=== PATIENT | male | born 1960 | race Caucasian/White ===

== ENCOUNTER 2019-11-28 11:21 | Observation (INO) | payer MEDICAID, OTHER ==
[~2019-11-28] VITALS: Ht 167.6 cm; Wt 110.4 kg
[~2019-11-28 11:21] MED LIST: CYCL-259 PO
[2019-11-28] MEDS ORDERED: SODIUM CHLORIDE FLUSH 10ML SYR IVF ONE (12:00)
[2019-11-28] MEDS ORDERED: MORPHINE SULFATE 4 MG/ML, 1ML IVPush PRN (12:00)
[2019-11-28] MEDS ORDERED: NITROGLYCERIN SINGLE TAB 0.4 MG SL PRN (12:00)
[2019-11-28] MEDS ORDERED: ASPIRIN 81 MG TABLET CHEW PO ONE (12:00)
--- NOTE | 2019-11-28 12:15 | NUR ---
Assumed care of patient. C/O left sided CP and bilateral upper back/shoulder pain. C/O intermittent bilateral lower ABD pain and nausea. HX DM and HTN. VSS. at bedside. Will continue to monitor.
[2019-11-28 12:22] LABS: BASOPHILS # (AUTO) 0.06 x10^3/uL (0-0.1); BASOPHILS % (AUTO) 1 % (0-1); EOSINOPHILS # (AUTO) 0.05 x10^3/uL (0-0.4); EOSINOPHILS % (AUTO) 1 % (1-7); LYMPHOCYTES # (AUTO) 1.32 x10^3/uL (1-3.4); LYMPHOCYTES % (AUTO) 19 % (22-44); MD NO; MEAN CORPUSCULAR HEMOGLOBIN 30.4 pg (27.5-34.5); MEAN CORPUSCULAR HGB CONC 33.4 g/dL (33.2-36.2); MEAN PLATELET VOLUME 9.9 fL (7.4-10.4); MONOCYTES # (AUTO) 0.48 x10^3/uL (0.2-0.8); MONOCYTES % (AUTO) 7 % (2-9); NEUTROPHILS # (AUTO) 4.93 x10^3/uL (1.8-6.8); NEUTROPHILS % (AUTO) 72 % (42-75); PLATELET COUNT 198 x10^3/uL (130-400); RED BLOOD COUNT 5.01 x10^6/uL (4.38-5.82); RED CELL DISTRIBUTION WIDTH 13.4 % (9.4-14.8)
[2019-11-28] MEDS ORDERED: NITROGLYCERIN SINGLE TAB 0.4 MG SL ONE (12:25)
[2019-11-28] MEDS ORDERED: ASPIRIN 81 MG TABLET CHEW ONE (12:25)
--- NOTE | 2019-11-28 12:28 | NUR ---
CP = 6-7. VSS. Nitro admin. No other needs.
[2019-11-28 12:30] LABS: ALBUMIN 3.9 g/dL (3.4-5.0); ANION GAP 7 mmol/L (5-15); CALCIUM 8.8 mg/dL (8.5-10.1); CHLORIDE 104 mmol/L (98-107)
[2019-11-28 12:35] LABS: ALANINE AMINOTRANSFERASE 47 U/L (12-78); ALKALINE PHOSPHATASE 101 U/L (45-117); BILIRUBIN,TOTAL 0.4 mg/dL (0.2-1.0); CREATININE 0.85 mg/dL (0.7-1.3); TOTAL PROTEIN 7.9 g/dL (6.4-8.2); TROPONIN I < 0.015 ng/mL (0.000-0.045)
--- NOTE | 2019-11-28 12:36 | NUR ---
CP = 4. VSS. Refusing second dose of nitro.
[2019-11-28] MEDS ORDERED: METF500T17 PO (13:05)
[2019-11-28] MEDS ORDERED: METO-93 PO (13:07)
[2019-11-28] MEDS ORDERED: LISI-167 PO (13:07)
[2019-11-28] MEDS ORDERED: AMLO10TA8 PO (13:07)
--- NOTE | 2019-11-28 13:36 | NUR ---
Pt traveled to [place] with tech
[2019-11-28] MEDS ORDERED: OMNIPAQUE 350 MG/ML, 100ML BOTTLE ONE (14:05)
--- NOTE | 2019-11-28 14:21 | NUR ---
CP = 3. VSS. No needs. Plan is for admit.
[2019-11-28] MEDS ORDERED: NITROGLYCERIN 0.4 MG BOTTLE (25 TABS) SL PRN (14:30)
[2019-11-28] MEDS ORDERED: DOCUSATE 100 MG CAPSULE PO PRN (14:30)
[2019-11-28] MEDS ORDERED: morphine SULFATE 10 MG/ML, 1ML IVPush PRN (14:30)
[2019-11-28] MEDS ORDERED: ONDANSETRON ODT 4 MG PO PRN (14:30)
[2019-11-28] MEDS ORDERED: ACETAMINOPHEN 325 MG TABLET PO PRN (14:30)
[2019-11-28] MEDS ORDERED: POLYETHYLENE GLYCOL 17 GM PACKET PO PRN (14:30)
[2019-11-28] MEDS ORDERED: BISACODYL 10 MG SUPP PR PRN (14:30)
[2019-11-28] MEDS ORDERED: ONDANSETRON 2MG/ML, 2ML IVPush PRN (14:30)
[2019-11-28] MEDS ORDERED: PROMETHAZINE 25 MG/ML, 1ML IM PRN (14:30)
[2019-11-28] MEDS ORDERED: hydrALAzine 20 MG/ML, 1ML IVPush PRN (14:30)
[2019-11-28 14:37] LABS: FREE T4 (FREE THYROXINE) 1.15 ng/dL (0.76-1.46)
--- NOTE | 2019-11-28 15:02 | NUR ---
Report given to full charge bookkeeper on tele floor
[2019-11-28 15:16] VITALS: BP 146/89
[2019-11-28] MEDS: HEPARIN 5,000 UNITS/ML, 1ML SQ SCH ×2 (15:46→21:45)
[2019-11-28] MEDS: PANTOPRAZOLE 40 MG IV IVPush SCH (15:47)
[2019-11-28] MEDS: INSULIN LISPRO 100 UNITS/ML, PEN SQ-INSULIN SCH ×2 (16:00→21:46)
[2019-11-28 17:13] LABS: TROPONIN I < 0.015 ng/mL (0.000-0.045)
[2019-11-28 19:40] VITALS: BP 123/75
[2019-11-28 20:40] LABS: TROPONIN I < 0.015 ng/mL (0.000-0.045)
[2019-11-28] MEDS: OXYcodone IR 5MG TABLET PO PRN (21:45)
[2019-11-28] MEDS: METOPROLOL SUCCINATE 50 MG TAB.ER.24H PO SCH (21:45)
[2019-11-29 01:25] VITALS: BP 122/83
[2019-11-29] MEDS: OXYcodone IR 5MG TABLET PO PRN (03:11)
[2019-11-29 04:30] LABS: BASOPHILS # (AUTO) 0.03 x10^3/uL (0-0.1); BASOPHILS % (AUTO) 1 % (0-1); EOSINOPHILS # (AUTO) 0.14 x10^3/uL (0-0.4); EOSINOPHILS % (AUTO) 2 % (1-7); LYMPHOCYTES # (AUTO) 1.91 x10^3/uL (1-3.4); LYMPHOCYTES % (AUTO) 27 % (22-44); MD NO; MEAN CORPUSCULAR HEMOGLOBIN 29.9 pg (27.5-34.5); MEAN CORPUSCULAR HGB CONC 32.8 g/dL (33.2-36.2); MEAN CORPUSCULAR VOLUME 91.1 fL (81-97); MEAN PLATELET VOLUME 10.2 fL (7.4-10.4); MONOCYTES # (AUTO) 0.77 x10^3/uL (0.2-0.8); MONOCYTES % (AUTO) 11 % (2-9); NEUTROPHILS % (AUTO) 60 % (42-75); PLATELET COUNT 204 x10^3/uL (130-400); RED BLOOD COUNT 5.04 x10^6/uL (4.38-5.82)
[2019-11-29 04:39] LABS: ALANINE AMINOTRANSFERASE 47 U/L (12-78); ALBUMIN 3.7 g/dL (3.4-5.0); ANION GAP 9 mmol/L (5-15); CALCIUM 9.2 mg/dL (8.5-10.1); CHLORIDE 105 mmol/L (98-107); CHOLESTEROL, TOTAL 219 mg/dL (140-239); CREATININE 0.77 mg/dL (0.7-1.3)
[2019-11-29 04:42] LABS: ALKALINE PHOSPHATASE 94 U/L (45-117); BILIRUBIN,TOTAL 0.4 mg/dL (0.2-1.0); CHOL/HDL RATIO 3.8; HDL CHOL % 26 % (26-37); HDL CHOLESTEROL (DIRECT) 58 mg/dL (40-60); LDL CHOLESTEROL,CALCULATED 120 mg/dL (54-169); LDL/HDL RATIO 2.1 (0.5-3.0); TOTAL PROTEIN 7.7 g/dL (6.4-8.2); TRIGLYCERIDES 206 mg/dL (50-200); VLDL CHOLESTEROL 41 mg/dL (0-25)
[2019-11-29] MEDS ORDERED: ASPIRIN 325 MG TABLET EC PO SCH (06:00)
[2019-11-29] MEDS: HEPARIN 5,000 UNITS/ML, 1ML SQ SCH ×2 (06:19→15:13)
[2019-11-29] MEDS: PANTOPRAZOLE 40 MG IV IVPush SCH (06:19)
[2019-11-29] MEDS: INSULIN LISPRO 100 UNITS/ML, PEN SQ-INSULIN SCH ×3 (07:00→16:13)
[2019-11-29 07:50] VITALS: BP 131/84
[2019-11-29] MEDS ORDERED: REGADENOSON 0.4 MG/5 ML SYRINGE ONE (08:54)
[2019-11-29] MEDS ORDERED: LISINOPRIL 10 MG TABLET PO SCH (09:00)
[2019-11-29] MEDS ORDERED: AMLODIPINE 10 MG TAB PO SCH (09:00)
[2019-11-29] MEDS: METOPROLOL SUCCINATE 50 MG TAB.ER.24H PO SCH (10:18)
[2019-11-29 12:55] VITALS: BP 116/80
[2019-11-29] MEDS ORDERED: METF500T17 PO (14:05)
[2019-11-29] MEDS ORDERED: ATOR40TA78 PO (14:05)
[2019-11-29] MEDS ORDERED: METO50TA82 PO (14:05)
[2019-11-29] MEDS ORDERED: ATORVASTATIN 40 MG TABLET PO SCH (21:00)
== END 2019-11-29 16:44 | disposition home or self-care (01) ==
LOC: ED 11:44 → INTOOBSV 13:49 → EDIP 13:49 → 5SO 15:11
PROVIDERS: ADMIT Internal Medicine Infectious Disease; ATTEND Internal Medicine Infectious Disease
DX: R07.89 Other chest pain (principal); I10 Essential (primary) hypertension; E11.9 Type 2 diabetes mellitus without complications; R11.0 Nausea; Z79.899 Other long term (current) drug therapy; Z79.84 Long term (current) use of oral hypoglycemic drugs
CPT/HCPCS: 36415; 71045; 71275; 74175; 78452; 80053; 80061; 82962; 83036; 83690; 83735; 84439; 84443; 84484; 85025; 93005; 93017; 93306; 96372; 96374; 96376; 99285; A9502; C9113; G0378; J1644; J1815; J2785; Q9967